=== PATIENT | male | born 1965 | race Two or more races ===

== ENCOUNTER 2021-06-26 00:19 | Emergency (ER) | payer MEDICAID, OTHER ==
[~2021-06-26] VITALS: Ht 177.8 cm; Wt 81.8 kg
[2021-06-26 01:44] VITALS: BP 139/70
[2021-06-26] MEDS ORDERED: IBUPROFEN 600 MG TABLET PO ONE (02:15)
[2021-06-26] MEDS ORDERED: HYDROCODONE/ACETAMINOPHEN 5-325 MG TABLET PO ONE (02:15)
[2021-06-26] MEDS ORDERED: PENICILLIN V POTASSIUM 500 MG TABLET PO ONE (02:15)
== END 2021-06-26 02:26 | disposition home or self-care (01) ==
LOC: EMS 00:26
DX: K02.9 Dental caries, unspecified (principal); E78.00 Pure hypercholesterolemia, unspecified; F17.200 Nicotine dependence, unspecified, uncomplicated; F12.90 Cannabis use, unspecified, uncomplicated
CPT/HCPCS: 99284; Z7502; Z7610